=== PATIENT | female | born 1950 | race Caucasian/White ===

== ENCOUNTER → 2023-04-29 12:22 | Outpatient (REF) | payer MEDICARE, BC, SELFPAY | LOC: RAD 12:22 | PROVIDERS: ATTENDING PHYSICIAN Nurse Practitioner Adult Health; FAMILY PHYSICIAN Family Medicine | DX: M54.2 Cervicalgia (principal) | CPT/HCPCS: 72040 ==

== ENCOUNTER → 2023-05-09 12:06 | Outpatient (REF) | payer MEDICARE, BC, SELFPAY ==
[2023-05-09 16:17] LABS: Lyme Antibody Screen, EIA Negative (Negative)
== END ==
LOC: REG 12:06
PROVIDERS: ATTENDING PHYSICIAN Family Medicine
DX: M25.50 Pain in unspecified joint (principal)
CPT/HCPCS: 36415; 86618

== ENCOUNTER → 2023-07-07 12:41 | Outpatient (REF) | payer MEDICARE, BC, SELFPAY | LOC: WDC 12:41 | PROVIDERS: ATTENDING PHYSICIAN Family Medicine | DX: Z12.31 Encounter for screening mammogram for malignant neoplasm of breast (principal) | CPT/HCPCS: 77063; 77067 ==

== ENCOUNTER → 2023-07-27 09:48 | Outpatient (REF) | payer MEDICARE, BC, SELFPAY ==
[2023-07-27 11:11] LABS: ALT (SGPT) 14 U/L (0-35); AST (SGOT) 20 U/L (14-36); Albumin 3.9 g/dl (3.5-5.0); Alkaline Phosphatase 55 U/L (38-126); Blood Urea Nitrogen 11 mg/dl (7-17); Carbon Dioxide 29 mmol/L (22-30); Chloride 103 mmol/L (98-107); Glucose 103 mg/dl (70-99); HDL Cholesterol 72 mg/dl; LDL Cholesterol, Calculated 87 mg/dl; Potassium 4.5 mmol/L (3.5-5.1); Sodium 139 mmol/L (135-145); Total Bilirubin 0.6 mg/dl (0.2-1.3); Total Cholesterol 171 mg/dl (50-199); Total Protein 7.2 g/dl (6.3-8.2); Triglyceride 63 mg/dl (10-149); Very Low Density Lipoprotein 12 mg/dl (0-30); eGFR > 60.00
[2023-07-27 13:21] LABS: Glycohemoglobin (HgbA1c) 5.8 % (4.0-5.6)
== END ==
LOC: REG 09:48
PROVIDERS: ATTENDING PHYSICIAN Family Medicine
DX: E78.00 Pure hypercholesterolemia, unspecified (principal); R73.01 Impaired fasting glucose
CPT/HCPCS: 36415; 80053; 80061; 83036

== ENCOUNTER → 2023-08-17 14:27 | Outpatient (REF) | payer MEDICARE, BC, SELFPAY | LOC: RAD 14:27 | PROVIDERS: ATTENDING PHYSICIAN Family Medicine | DX: M54.50 Low back pain, unspecified (principal) | CPT/HCPCS: 72110 ==

== ENCOUNTER → 2023-12-02 08:49 | Outpatient (REF) | payer MEDICARE, BC, SELFPAY ==
[2023-12-02 10:31] LABS: Erythrocyte Sed Rate 18 mm/hour (0-20)
== END ==
LOC: REG 08:49
PROVIDERS: ATTENDING PHYSICIAN Internal Medicine Rheumatology; FAMILY PHYSICIAN Family Medicine
DX: E55.9 Vitamin D deficiency, unspecified (principal); M35.3 Polymyalgia rheumatica; M54.2 Cervicalgia; R53.83 Other fatigue
CPT/HCPCS: 36415; 85652; 86140

== ENCOUNTER → 2024-01-12 11:03 | Outpatient (REF) | payer MEDICARE, BC, SELFPAY ==
[2024-01-12 12:16] LABS: % Basophils 0.7 % (0-2); % Eosinophils 1.7 % (0-6); % Immature Granulocytes 1.1 % (0-0.5); % Lymphocytes 24.7 % (20.5-51.1); % Monocytes 12.9 % (1.7-9.3); % Neutrophils 58.9 % (42.2-75.2); Absolute Basophils 0.1 10^3/uL (0-0.2); Absolute Eosinophils 0.1 10^3/uL (0-0.7); Absolute Immature Granulocytes 0.1 10^3/uL (0-0.05); Absolute Lymphocytes 1.8 10^3/uL (1.2-3.4); Absolute Monocytes 0.9 10^3/uL (0.1-0.6); Absolute Neutrophils 4.2 10^3/uL (1.4-6.5); Hematocrit 39.5 % (37.0-47.0); Hemoglobin 12.6 g/dL (12.0-16.0); Mean Corp Hgb Conc. 31.9 g/dL (33.0-37.0); Mean Corpuscular Hgb 28.7 pg (27.0-31.0); Mean Platelet Volume 8.9 fL (7.4-10.4); Nucleated Red Blood Cells % 0 %; Platelet Count 302 10^3/uL (130-400); Red Blood Cell Count 4.39 10^6/uL (4.20-5.40); Red Cell Dist. Width 14.1 % (11.5-14.5); White Blood Cell Count 7.2 10^3/uL (4.8-10.8)
[2024-01-12 12:47] LABS: Glycohemoglobin (HgbA1c) 5.8 % (4.0-5.6)
[2024-01-12 12:49] LABS: Blood Urea Nitrogen 15 mg/dl (7-17); Calcium 9.5 mg/dl (8.4-10.2); Carbon Dioxide 28 mmol/L (22-30); Chloride 103 mmol/L (98-107); Glucose 94 mg/dl (70-99); Potassium 4.2 mmol/L (3.5-5.1); Sodium 140 mmol/L (135-145); eGFR > 60.00
== END ==
LOC: REG 11:03
PROVIDERS: ATTENDING PHYSICIAN Family Medicine; OTHER PHYSICIAN Internal Medicine Rheumatology
DX: E78.00 Pure hypercholesterolemia, unspecified (principal); R73.01 Impaired fasting glucose; R53.82 Chronic fatigue, unspecified
CPT/HCPCS: 36415; 80048; 83036; 85025

== ENCOUNTER 2024-02-16 07:53 | Day surgery (SDC) | payer MEDICARE, BC, SELFPAY ==
[2024-02-16] MEDS: BACTROBAN NASAL 1 GRAM NASAL (08:28)
[2024-02-16] MEDS: NSS 500 IV (08:28)
[2024-02-16] MEDS: PERIDEX 0.12% ORAL RINSE 15 ML PO (08:28)
--- NOTE | 2024-02-16 08:37 | W.SUR.PREOP ---
Pre-Operative Surgical Note
-
I have examined this patient prior to the performance of the scheduled procedure.
The patient's condition is unchanged from the time of the current History and
Physical and the patient is able to undergo the scheduled procedure.
[2024-02-16 08:38] LABS: Hematocrit 39.3 % (37.0-47.0); Hemoglobin 12.6 g/dL (12.0-16.0); Mean Corp Hgb Conc. 32.1 g/dL (33.0-37.0); Mean Corpuscular Hgb 29.2 pg (27.0-31.0); Mean Platelet Volume 8.3 fL (7.4-10.4); Platelet Count 318 10^3/uL (130-400); Red Blood Cell Count 4.32 10^6/uL (4.20-5.40); Red Cell Dist. Width 14.1 % (11.5-14.5); White Blood Cell Count 12.8 10^3/uL (4.8-10.8)
[2024-02-16 08:45] LABS: APTT 27.5 Sec (23.4-35.0); PT 14.7 Sec (11.4-14.6)
[2024-02-16 08:48] LABS: Blood Urea Nitrogen 21 mg/dl (7-17); Calcium 9.7 mg/dl (8.4-10.2); Carbon Dioxide 31 mmol/L (22-30); Chloride 97 mmol/L (98-107); Estimated Creatinine Clearance 57 ml/min; Glucose 88 mg/dl (70-99); Potassium 3.6 mmol/L (3.5-5.1); Sodium 136 mmol/L (135-145); eGFR > 60.00
--- NOTE | 2024-02-16 10:14 | OR.RPT ---
Operative Report
Operative Report
PROCEDURE DATE: 02/16/2024
Preoperative diagnosis: Temporal arteritis
Postoperative diagnosis: Same
Procedure: Bilateral superficial temporal artery biopsies.
Surgeon: Elver
Last Pattern Grader: Kerwin Chambers, required for all aspects of procedure including assistance with traction/countertraction and assistance with closure.
Complications: None
Anesthesia: Local, sedation
Indications for procedure:
Concern for temporal arteritis. Referred for temporal artery biopsies. With/benefit/alternatives also discussed. She understood all wished to proceed.
Description of procedure:
Patient was identified brought to the operating room placed on the table in supine position. After the adequate administration of anesthesia and perioperative antibiotics she was prepped and draped in the standard surgical fashion. A standard
preoperative timeout was undertaken and everybody was in agreement the plan. A longitudinal incision was made in the scalp just anterior and superior to the superiormost aspect of the pinna of the right ear (overlying the palpable pulsation of the
artery) after infiltration of the skin and subcutaneous tissue with 1% lidocaine. This was carried down through the subcutaneous layer and the fascia layer with electrocautery. The superficial temporal artery was identified. It was mobilized
using sharp dissection. It was then ligated proximally and distally as well as a branch ligated all with a clip. I then transected the artery. This was then sent for specimen.
A similar incision was made in the left scalp just anterior and superior to the superiormost aspect of the pinna of the left ear (overlying the palpable pulsation of the artery) after infiltration of the skin and subcutaneous tissue with 1%
lidocaine. Similarly this was carried down through the subcutaneous tissue and fascial layer with the electrocautery. The superficial temporal artery was identified and was mobilized using sharp dissection. There was an adjacent/crossing vein
(small vein) that was clipped and divided to allow better exposure. The artery was then ligated proximally and distally as well as a branch ligated a clip. I then transected the artery. This was then sent for specimen. Of note, the artery on
this side (left side) did appear grossly slightly more thickened.
Both incision sites were then irrigated. Hemostasis was achieved and confirmed. We then closed in layers using 3-0 Vicryl deep dermal layer followed by 4-0 Monocryl subcuticular running layer (this was completed bilaterally). Dermabond was then
applied bilaterally. Patient tolerated procedure well.
[2024-02-16] MEDS: NSS 1000 IV (10:28)
[2024-02-16] MEDS: TYLENOL 650 MG PO (10:59)
== END 2024-02-16 11:24 | disposition home or self-care (01) ==
LOC: CATH 07:53
PROVIDERS: ATTENDING PHYSICIAN Surgery Vascular Surgery; FAMILY PHYSICIAN Family Medicine
DX: R51.9 Headache, unspecified (principal); I10 Essential (primary) hypertension; E78.5 Hyperlipidemia, unspecified; K58.9 Irritable bowel syndrome, unspecified; Z80.3 Family history of malignant neoplasm of breast
CPT/HCPCS: 37609; 88305; 80048; 85027; 85610; 85730; 86850; 86900; 86901; 88313; 93005

== ENCOUNTER → 2024-04-25 12:34 | Outpatient (REF) | payer MEDICARE, BC, SELFPAY | LOC: RAD 12:34 | PROVIDERS: ATTENDING PHYSICIAN Internal Medicine Rheumatology; FAMILY PHYSICIAN Family Medicine | DX: M31.6 Other giant cell arteritis (principal); M35.3 Polymyalgia rheumatica; M54.2 Cervicalgia; M85.80 Other specified disorders of bone density and structure, unspecified site; R53.83 Other fatigue; Z78.0 Asymptomatic menopausal state | CPT/HCPCS: 77080 ==

== ENCOUNTER → 2024-07-12 10:08 | Outpatient (REF) | payer MEDICARE, BC, SELFPAY ==
[2024-07-12 12:07] LABS: Calcium 10.1 mg/dl (8.4-10.2); Total Protein 6.3 g/dl (6.3-8.2)
[2024-07-12 12:11] LABS: Erythrocyte Sed Rate 6 mm/hour (0-20)
[2024-07-12 12:12] LABS: C-Reactive Protein < 5.00 mg/L (0.0-10.00)
[2024-07-12 12:18] LABS: IgA 184 mg/dl (70-400)
[2024-07-12 12:42] LABS: TSH Reflex To Free T4 0.22 uIU/ml (0.47-4.68)
[2024-07-12 13:10] LABS: Free T4 0.87 ng/dl (0.78-2.19)
[2024-07-14 10:41] LABS: Intact PTH 20.4 pg/ml (13.6-85.8)
== END ==
LOC: WDC 10:08
PROVIDERS: ATTENDING PHYSICIAN Family Medicine; REFERRING PHYSICIAN Internal Medicine Rheumatology
DX: Z12.31 Encounter for screening mammogram for malignant neoplasm of breast (principal); E07.9 Disorder of thyroid, unspecified; E53.8 Deficiency of other specified B group vitamins; E55.9 Vitamin D deficiency, unspecified; M31.6 Other giant cell arteritis; M35.3 Polymyalgia rheumatica; M54.2 Cervicalgia; M85.80 Other specified disorders of bone density and structure, unspecified site; R53.83 Other fatigue; Z13.1 Encounter for screening for diabetes mellitus
CPT/HCPCS: 36415; 77063; 77067; 82784; 83516; 83970; 84155; 84165; 84439; 84443; 85652; 86140; 86231

== ENCOUNTER → 2024-07-20 09:23 | Outpatient (REF) | payer MEDICARE, BC, SELFPAY ==
[2024-07-20 10:11] LABS: Glycohemoglobin (HgbA1c) 5.6 % (4.0-5.6)
[2024-07-20 12:14] LABS: ALT (SGPT) 21 U/L (0-35); AST (SGOT) 24 U/L (14-36); Alkaline Phosphatase 32 U/L (38-126); Blood Urea Nitrogen 13 mg/dl (7-17); Calcium 9.8 mg/dl (8.4-10.2); Carbon Dioxide 27 mmol/L (22-30); Chloride 108 mmol/L (98-107); Glucose 87 mg/dl (70-99); HDL Cholesterol 84 mg/dl; LDL Cholesterol, Calculated 118 mg/dl; Potassium 4.2 mmol/L (3.5-5.1); Sodium 140 mmol/L (135-145); Total Bilirubin 0.4 mg/dl (0.2-1.3); Total Cholesterol 218 mg/dl (50-199); Total Protein 6.4 g/dl (6.3-8.2); Triglyceride 83 mg/dl (10-149); Very Low Density Lipoprotein 16 mg/dl (0-30); eGFR > 60.00
== END ==
LOC: REG 09:23
PROVIDERS: ATTENDING PHYSICIAN Family Medicine; REFERRING PHYSICIAN Internal Medicine Rheumatology
DX: E78.00 Pure hypercholesterolemia, unspecified (principal); R73.01 Impaired fasting glucose
CPT/HCPCS: 36415; 80053; 80061; 83036